=== PATIENT | female | born 1995 | race Caucasian/White ===

== ENCOUNTER 2023-09-18 08:00 | Observation (INO) | payer MEDICAID, OTHER ==
[~2023-09-18] VITALS: Ht 162.6 cm; Wt 63.5 kg
[2023-09-18] MEDS ORDERED: PREN-543 PO (08:44)
[2023-09-18] MEDS ORDERED: LEVO50CA2 PO (08:46)
== END 2023-09-18 09:47 | disposition home or self-care (01) ==
LOC: MLD 08:00
PROVIDERS: ADMIT Obstetrics & Gynecology; ATTEND Obstetrics & Gynecology
DX: O26.893 Other specified pregnancy related conditions, third trimester (principal); R10.9 Unspecified abdominal pain; Z3A.30 30 weeks gestation of pregnancy
CPT/HCPCS: 81000; G0378